=== PATIENT | female | born 1950 | race Caucasian/White ===

== ENCOUNTER 2020-10-03 10:14 | Observation (INO) | payer BC, OTHER ==
[2020-10-03] VITALS (11 sets, daily range): BP systolic 138–207; BP diastolic 76–117
[~2020-10-03] VITALS: Ht 152.4 cm; Wt 78.5 kg
[2020-10-03 11:57] LABS: HEMATOCRIT 42.1 % (37.0-47.0); HEMOGLOBIN 14.2 gm/dL (12.0-15.0); MCH 29.9 pg (26.0-34.0); MCHC 33.7 g/dL (28.0-37.0); MCV 88.8 fL (80.0-100.0); RBC 4.74 mil/uL (4.20-5.00); RDW 13.7 % (10.5-14.5)
[2020-10-03 11:58] LABS: CALCIUM 9.6 mg/dL (8.5-10.1); POTASSIUM 3.5 mmol/L (3.5-5.1)
[2020-10-03 12:09] LABS: INR 1.05; PROTIME 11.4 Seconds (10.5-12.1)
[2020-10-03 12:10] LABS: TROPONIN-I 6.42 ng/mL (<0.06)
[2020-10-03] MEDS ORDERED: AMLODIPINE BESY10 MG PO (12:18)
[2020-10-03] MEDS ORDERED: PROTONIX40 M2 PO (12:20)
[2020-10-03] MEDS ORDERED: LOPRESSOR50 MG PO (12:20)
[2020-10-03] MEDS ORDERED: PROPRANOLOL 20M20 M1 PO (12:21)
[2020-10-03] MEDS ORDERED: JANTOVEN1 MG PO (12:23)
[2020-10-03] MEDS ORDERED: HYDROCHLOROTH12.5 M1 PO (12:36)
--- NOTE | 2020-10-03 12:36 | EKG ---
[place] [address] [facility] [place] [address] ELECTROCARDIOGRAM REPORT Name: IVÁN MENDEZ Room #: [facility]#: [id number] Admission: Attend Phys: Isaías Blackman MD, Discharge: Date of : 54 Report #: [id number] [facility] Test Date: 2020-10-03 Test Time: 12:02:41 Pat Name: IVÁN ALATORRE Department: Room: Gender: F Copra Processor: FRANCINE : 1950 Requested By: Isaías Blackman Order Number: [id number] : Trav Mendoza Measurements Intervals [place] Rate: 63 P: VA: QRS: 4 QRSD: 105 T: -56 QT: 501 QTc: 513 Interpretive Statements Atrial fibrillation Abnormal R-wave progression, late transition Probable left ventricular hypertrophy Nonspecific T abnormalities, inferior leads Prolonged QT interval No previous ECG available for comparison Electronically Signed On 10-03-2020 12:36:31 CDT by Trav Mendoza [email or web address] <ELECTRONICALLY SIGNED> By: Trav Mendoza MD, [facility] 10/03/20 1236 1202 120 Trav Mendoza MD, FACC /EPI
[2020-10-03 12:49] LABS: CHOLESTEROL 185 mg/dL (<200); HDL CHOLESTEROL 53 mg/dL (>40); LDL CHOLESTEROL 102 mg/dL (<100); TC:HDL 3.5 Ratio (Not establshd); TRIGLYCERIDE 154 mg/dL (<150); VLDL 31 mg/dL (<40)
--- NOTE | 2020-10-03 15:18 | 2DMMODE ---
[facility] [place] [address] [place] [address] 2 D/M-MODE ECHOCARDIOGRAM Name: LEEANN ALATORREIVÁN Room #: PRE IN [facility]#: [id number] Admission: Attend Phys: Isaías Blackman MD, Discharge: Date of : 54 Report #: [id number] THIS REPORT FOR: cc: FAM - Family physician unknown FAM - Family physician unknown Thomas Zheng MD [facility] ~ APPROVED REPORT Study performed: 10/03/2020 14:10:43 EXAM: Comprehensive 2D, Doppler, and color-flow Echocardiogram Patient Location: Holding Status: routine HR: 65 bpm BP: 207/117 mmHg Rhythm: Atrial Fibrillation Other Information Study Quality: Good Indications Chest pain, short of breath, NSTEMI, AFib, HTN. 2D Dimensions RVDd: 28.00 mm IVSd: 13.00 (7-11mm) LVOT Diam: 21.00 (18-24mm) LVDd: 49.00 mm PWd: 14.00 (7-11mm) LVDs: 34.00 (25-40mm) Left Atrium: 43.45 (27-40mm) Aortic Root: 39.00 mm Volumes Left Atrial Volume (Systole) Single Plane 4CH: 116.54 mL Single Plane 2CH: 123.25 mL Aortic Valve AoV Peak Jaylon.: 1.20 m/s AO Peak Gr.: 5.74 mmHg LVOT Max P.90 mmHg LVOT Max V: 0.69 m/s EDUARDO Vmax: 1.92 cm2 Mitral Valve [facility] [address] [place] [address] 2 D/M-MODE ECHOCARDIOGRAM Name: IVÁN MENDEZ Room #: PRE IN ..#: [id number] Admission: Attend Phys: Isaías ShelliMaxine Blackman, Discharge: Date of : 54 Report #: [id number] MV Decel. Time: 202.99 ms MV E Max Jaylon.: 0.79 m/s Pulmonary Valve PV Peak Jaylon.: 0.67 m/s PV Peak Gr.: 1.80 mmHg Tricuspid Valve TR Peak Jaylon.: 2.43 m/s RAP Estimate: 5.00 mmHg TR Peak Gr.: 24.00 mmHg PA Pressure: 5.00 mmHg Left Ventricle The left ventricle is normal size. There is normal LV segmental wall motion. Mild concentric left ventricular hypertrophy. Left ventricular systolic function is normal. LVEF is 60-65%. This study is not technically sufficient to allow evaluation of the LV diastolic function due to atrial fibrillation. Right Ventricle The right ventricle is normal size. The right ventricular systolic function is normal. Atria Left atrium is severely dilated. The right atrium size is normal. Aortic Valve Aortic valve is trileaflet, mildly sclerotic Trace aortic regurgitation. There is no aortic valvular stenosis. Mitral Valve The mitral valve is normal in structure. Mild to moderate mitral regurgitation. Tricuspid Valve The tricuspid valve is normal in structure. Trace tricuspid regurgitation. Estimated PAP is 30mmHg. Pulmonic Valve The pulmonary valve is normal in structure. Mild pulmonic regurgitation. Great Vessels Aortic root is mildly dilated (3.9cm). Ascending aorta is not well visualized. IVC is normal in size and collapses >50% with inspiration. [facility] [place] [place] [address] 2 D/M-MODE ECHOCARDIOGRAM Name: IVÁN MENDEZ Room #: PRE IN [facility].#: [id number] Admission: Attend Phys: Isaías Blackman, Discharge: Date of : 54 Report #: [id number] Pericardium There is no pericardial effusion. <Conclusion> Left ventricular systolic function is normal. There is normal LV segmental wall motion. LVEF is 60-65%. Left atrium is severely dilated. Aortic valve is trileaflet, mildly sclerotic. Trace aortic regurgitation, no stenosis. The mitral valve is normal in structure. Mild to moderate mitral regurgitation. Trace tricuspid regurgitation. Estimated pulmonary artery pressure of 30mmHg. There is no pericardial effusion. <ELECTRONICALLY SIGNED> By: Thomas Zheng MD, [facility] 10/03/20 1518 1518 1518 Thomas Zheng MD, FACC /INF
--- NOTE | 2020-10-03 18:44 | NUR ---
PATIENT ADMITTED FROM FINANCIAL PLANNING ASSISTANT POST RENAL STENT PLACEMENT. RIGHT GROIN SITE DRESSING CDI. AREA "PUFFY" BUT NOTED AND MARKED BY FINANCIAL PLANNING ASSISTANT STAFF. AREA SOFT TO TOUCH. NO HEMATOMA. PATIENT [place]EN[place] SPEAKING ONLY. ADMISSION ASSESSMENTS COMPLETED USING INTERPERTER. AFIB ON THE [facility]. BEDREST UNTIL 2100.
[2020-10-04 00:20] VITALS: BP 148/88
[2020-10-04 04:45] VITALS: BP 149/89
--- NOTE | 2020-10-04 07:28 | NUR ---
PT HAS DENIED ANY CHEST PAIN ALL NIGHT. SHE DID HAVE 1 EPISODE OF N/V AROUND 1999 LAST NIGHT. ZOFRAN WAS GIVEN WITH COMPLETE RELIEF. RIGHT GROIN CATH SITE INTACT WITHOUT HEMATOMA. SOME BRUISING AND SOFT SWELLING NOTED AROUND THE SITE - AREA MARKED TO MONITOR FOR ANY INCREASE IN SWELLING. PT GOT UP W/ SBA TO BTR THIS MORNING TO VOID. TOLERATED WELL. VSS. AFEBRILE. PROGRESSING TOWARD POC GOALS. REPORT GIVEN TO DAY SHIFT RN.
[2020-10-04 07:30] VITALS: BP 124/59
[2020-10-04] MEDS ORDERED: METOPROLOL SUCC50 MG PO (08:04)
[2020-10-04] MEDS ORDERED: PLAVIX 75 MG TA75 M1 PO (08:04)
[2020-10-04] MEDS ORDERED: LIPITOR40 MG PO (08:04)
[2020-10-04] MEDS ORDERED: BENICAR40 MG PO (08:04)
[2020-10-04 10:42] LABS: HEMATOCRIT 41.5 % (37.0-47.0); MCH 29.8 pg (26.0-34.0); MCHC 33.8 g/dL (28.0-37.0); MCV 88.1 fL (80.0-100.0); RBC 4.71 mil/uL (4.20-5.00); RDW 13.7 % (10.5-14.5); WBC 9.7 thou/uL (4.0-11.0)
[2020-10-04 11:16] LABS: ALBUMIN 3.5 g/dL (3.4-5.0); CREATININE 1.4 mg/dL (0.6-1.0); TOTAL BILIRUBIN 1.1 mg/dL (0.2-1.0); TOTAL PROTEIN 7.3 g/dL (6.4-8.2)
[2020-10-04 11:18] LABS: TROPONIN-I 4.91 ng/mL (<0.06)
[2020-10-04 11:30] VITALS: BP 109/51
[2020-10-04 13:21] VITALS: BP 109/51
--- NOTE | 2020-10-04 13:44 | NUR ---
DISCONTINUE IV AND TELE. PT INFORMED GREENHOUSE SUPERINTENDENT THAT PT WAS OK TO GOT HOME. WENT OVER DISCHARGE ORDERS WITH FAMILY ELIEL WHO IS FLUENT IN [place]. PT DISCHARGED TO HOME VIA PRIVATE VEHICLE.
--- NOTE | 2020-10-05 16:49 | CATHLAB ---
[facility] [place] [address] [place] [address] INVASIVE PROCEDURE REPORT Name: IVÁN MENDEZ Room #: 214-P [facility] Maria Elena Frias#: [id number] Admission: 10/03/20 Attend Phys: Isaías Blackman MD, Discharge: 10/04/20 Date of : 54 Report #: [id number] THIS REPORT FOR: cc: FAM - Family physician unknown FAM - Family physician unknown Isaías Blackman MD [facility] ~ APPROVED REPORT Study performed: 10/03/2020 14:22:23 Patient Details Patient Status: In-Patient Room #: The patient is a 70 year-old female Event Personnel Isaías Blackman Rehab Consultant, Joaquín Irwin RN RN, Jeff Bright RTR Scrub, Nola Mandel RTR Monitor Procedures Performed Art Access - R femoral artery* 32410 Initial Mod Sed Same Phys/QHP Gr5y 815231 Left Heart Cath w/or w/o Coronaries [id number] [facility] Aortogram Abdominal Peripheral Angio 509351 Indication Chest pain Procedure Narrative The Right Groin^ was infiltrated with 1% Lidocaine subcutaneous anesthesia. A PINNACLE 6FR Sheath #[id number] sheath was inserted into the RFA^. Coronary angiography was performed using coronary diagnostic catheters. The right coronary system was accessed and visualized with a LAUNCHER 6FR JR 4 #[id number] catheter. The left coronary system was accessed and visualized with a JL4 catheter. The left ventricle was accessed and visualized with a PIGTAIL catheter. Left ventricular/Aortic Valve gradient assessed . Left ventriculogram was performed in 30 degree projection. An aortogram of the abdominal aorta was performed. Closure device was deployed with a 6 Fr MYNX CONTROL 6F/7F L#[id number]. The patient tolerated the procedure well and there were no complications associated with the procedure. There was no hematoma. Intraoperative Conscious Sedation Sedation start time: 15:31 Case end Time: 17:35 [facility] [place] [place] [address] INVASIVE PROCEDURE REPORT Name: IVÁN MENDEZ Room #: 214-P [facility] IN ..#: [id number] Admission: 10/03/20 Attend Phys: Isaías Blackman, Discharge: 10/04/20 Date of : 54 Report #: [id number] Fentanyl 100 mcg Versed 1 mg Conscious sedation is a combined total of left heart cath and renal stent procedures. Contrast is a combined total of left heart cath and renal stent procedures. Fluoro time and dose is a combined total of left heart cath and renal stent procedures. Fluoro Time: 9.60 minutes Dose: DAP 46461.24 cGycm2 Contrast Type and Amount: Omnipaque 190 ml Hemodynamics The aortic pressure is 186/85 mmHg with a mean of 141 mmHg. The left ventricular pressure is 187/7 mmHg with a mean of mmHg. The left ventricular end diastolic pressure is 16 mmHg. PCI Technique Lesion Percutaneous coronary intervention was performed on the Ostial right renal. Conclusion #1 Normal left ventricular size and systolic function EF 55%. #2 abdominal aortogram revealing mild aortic ectasia and tortuosity but no definite aneurysm. Moderate super renal dilatation. There appears to be a high-grade lesion of the right renal artery will have Dr. Pickering of interventional radiology evaluate. #3 left main free of disease giving rise to LAD and circumflex. #4 the LAD extends around to the apex. There is an eccentric 3040% mid vessel lesion diffuse disease distally no occlusive disease. #5 a codominant and large circumflex system is patent there is no occlusive disease. #6 codominant right coronary artery is patent with a very small PDA. No occlusive disease. Recommendations and plan: Not clear as to etiology of the bump in troponin which is small. May be a type II hypertensive induced with labile systolic pressures to 220. Renal artery stenosis high-grade in the right renal artery is noted. Dr. Pickering will perform renal artery stent suspect clinical improvement. Patient will be monitored in CCU overnight and antihypertensive medications adjusted. No indication for coronary intervention. <ELECTRONICALLY SIGNED> By: Isaías Blackman MD, FACC 10/05/201648 48 48 Isaías Blackman MD, FACC /INF
== END 2020-10-04 13:41 | disposition home or self-care (01) ==
LOC: 2N 10:14
PROVIDERS: Nurse Practitioner Adult Health; ADMIT Internal Medicine Cardiovascular Disease; ATTEND Internal Medicine Cardiovascular Disease
DX: I21.4 Non-ST elevation (NSTEMI) myocardial infarction (principal); I25.10 Atherosclerotic heart disease of native coronary artery without angina pectoris; I48.91 Unspecified atrial fibrillation; I10 Essential (primary) hypertension; Q27.1 Congenital renal artery stenosis; E78.5 Hyperlipidemia, unspecified; Z79.01 Long term (current) use of anticoagulants; Z79.899 Other long term (current) drug therapy